=== PATIENT | female | born 1935 | race Caucasian/White ===

== ENCOUNTER 2021-08-15 15:40 | Emergency (ER) | payer OTHER ==
[~2021-08-15] VITALS: Ht 152.4 cm; Wt 49.9 kg
[2021-08-15 15:40] VITALS: BP_SYST 156
--- NOTE | 2021-08-15 15:40 | NUR ---
BROUGHT IN BY [facility] AND PLACED IN BED #1, TRIAGED. REPORT GIVEN TO SAVANNAH
--- NOTE | 2021-08-15 15:45 | NUR ---
PT BIBA FROM HOME C/O FEELING ANXIETY, FAST HEART . PT REPORTS FEELING OVERWHELMED WITH HER FAMILY AND THE [place]. UPON ARRIVAL PT REPORTS ALREADY FEELING BETTER. PT IS AAOX4, AMBULATORY, V/S STABLE
--- NOTE | 2021-08-15 16:09 | NUR ---
ER DR. ALEMAN AT THE BEDSIDE EXAMINING PT
--- NOTE | 2021-08-15 16:13 | NUR ---
LAB AT THE BEDSIDE FOR BLOOD DRAW
--- NOTE | 2021-08-15 16:13 | NUR ---
PT REQUESTING WATER TO PROVIDE URINE SAMPLE
[2021-08-15 16:29] LABS: BASOPHILS % (AUTO) 0.2 % (0.0-2.0); EOSINOPHILS # (AUTO) 0.1 K/uL (0.0-0.4); EOSINOPHILS % (AUTO) 1.6 % (0.0-4.0); HEMATOCRIT 40.3 % (36-48); HEMOGLOBIN 13.6 g/dL (12.0-16.0); LYMPHOCYTES # (AUTO) 1.7 K/uL (1.0-5.5); LYMPHOCYTES % (AUTO) 32.6 % (20.5-51.5); MEAN CORPUSCULAR HEMOGLOBIN 31 pg (27-31); MEAN CORPUSCULAR HGB CONC 34 % (32-36); MEAN CORPUSCULAR VOLUME 92 fL (79.0-98.0); MONOCYTES # (AUTO) 0.5 K/uL (0.0-1.0); MONOCYTES % (AUTO) 10.2 % (1.7-9.3); NEUTROPHILS # (AUTO) 2.8 K/uL (1.8-7.7); NEUTROPHILS % (AUTO) 55.4 % (40.0-70.0); PLATELET COUNT (AUTO) 167 K/uL (130-430); RED BLOOD CELL COUNT(AUTO) 4.38 MIL/uL (4.2-6.2); RED CELL DISTRIBUTION WIDTH 13.8 % (9.0-15.0); WHITE BLOOD COUNT (AUTO) 5.1 K/uL (4.8-10.8)
[2021-08-15 17:00] LABS: ANION GAP 8 (5-15); CALCIUM 8.6 mg/dL (8.4-11.0); CHLORIDE 105 mmol/L (98-107); GLUCOSE 85 mg/dL (70-99); POTASSIUM 3.4 mmol/L (3.5-5.1); SODIUM SERUM 141 mmol/L (136-145); UREA NITROGEN, BLOOD 18 mg/dL (8-21)
[2021-08-15 17:08] LABS: ALANINE AMINOTRANSFERASE 20 U/L (12-78); ALBUMIN 3.5 g/dL (3.4-4.8); ASPARTATE AMINOTRANSFERASE 20 U/L (10-37); TOTAL BILIRUBIN 0.3 mg/dL (0.0-1.0)
[2021-08-15 17:57] LABS: BILIRUBIN,URINE NEGATIVE (NEGATIVE); BLOOD, URINE NEGATIVE (NEGATIVE); COLOR,URINE YELLOW (YELLOW); GLUCOSE,URINE NEGATIVE (NEGATIVE); KETONES,URINE NEGATIVE (NEGATIVE); LEUKOCYTE ESTERASE ,URINE NEGATIVE (NEGATIVE); NITRITE, URINE NEGATIVE (NEGATIVE); PROTEIN URINE NEGATIVE (NEGATIVE); UROBILINOGEN,URINE 0.2 (0.2-1.0)
[2021-08-15 18:01] LABS: CLARITY/URINE SLIGHTLY HAZY (CLEAR)
[2021-08-15 18:19] VITALS: BP_SYST 144
--- NOTE | 2021-08-15 18:19 | NUR ---
Patient given written and verbal discharge instructions and verbalizes understanding. ER MD discussed with patient the results and treatment provided. Patient in stable condition. ID arm band removed. NO Rx given. Patient educated on pain management and to follow up with PMD. Pain Scale 0/10. Opportunity for questions provided and answered. Medication side effect fact sheet provided.
== END 2021-08-15 18:19 | disposition home or self-care (01) ==
LOC: SED 15:40
DX: F41.9 Anxiety disorder, unspecified (principal); R06.00 Dyspnea, unspecified; I10 Essential (primary) hypertension
CPT/HCPCS: 36415; 80053; 81003; 84484; 85025; 99283